=== PATIENT | male | born 1975 | race Caucasian/White ===

== ENCOUNTER 2016-06-28 23:51 | Emergency (ER) | payer OTHER ==
[2016-06-29] MEDS ORDERED: CEPHALEXIN 250 MG CAP As Ordered ONE (00:33)
--- NOTE | 2016-06-29 00:51 | EDDOCDS ---
Nurse's Notes [facility] Name: Gamal Altamirano Age: 41 yrs Sex: Male : 1975 Arrival Date: 06/28/2016 Time: 23:51 Bed I2 / M2 Private MD: NO PRIMARY PHYSICIAN, . Diagnosis: Cellulitis of head [any part, except face] Presentation: 06/28 23:56 Presenting complaint: Patient states: Patient a week ago got out of shower, noted jmb redness to scalp. Benadryl placed on area, went away but continues to be reddened. Last week "felt run down". Patient noted gland behind ear swollen which progressed to left side of face. Adult Sepsis Screening: The patient does not have new or worsening altered mentation. Patient's respiratory rate is less than 22. Systolic blood pressure is greater than 100. Patient has a qSOFA score of 0- Negative Sepsis Screen. Suicide/Homicide risk assessment- the patient denies having any suicidal and/or homicidal ideations and does not present with any other emotional, behavioral or mental health complaints. 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 Transition of care: patient was not received from another setting of care. 23:56 Acuity: JUAN Level 4 [facility] 23:56 Method Of Arrival: Walkin/Carried/Asstd [facility] Triage Assessment: 23:58 General: Appears in no apparent distress, comfortable, Behavior is appropriate for age, jmb cooperative. Pain: Location: face and scalp Pain currently is 5 out of 10 on a pain scale. HIV screening NA for this visit Offered previously. Neurological: Level of Consciousness is awake, alert, obeys commands, Oriented to person, place, time, Speech is normal, Facial symmetry appears normal, Facial symmetry: tongue is midline. Respiratory: Airway is patent Respiratory effort is even, unlabored, Respiratory pattern is regular, symmetrical. Derm: redness to scalp. Musculoskeletal: Range of motion intact in all extremities. Historical: - Allergies: lactose intolerant; - Home Meds: 1. ibuprofen 400 mg Oral tab 1 tab every 4 hours 2. all-theanen nightly - PMHx: Lactose Intolerance; - PSHx: Vasectomy; - Social history: Smoking status: Patient states was never smoker of tobacco. No barriers to communication noted, The patient speaks fluent Tajik, Speaks appropriately for age. - Family history: Not pertinent. - : The pt / caregiver states he / she is not on anticoagulants. Home medication list is obtained from the patient. - Exposure Risk Screening:: None identified. Screenin/15 00:19 Screening information is obtained from the patient. Fall risk: No risks identified. af2 Assistance ADL's: requires no assistance with activities of daily living. Abuse/DV Screen: The patient / caregiver reports he/she is: not in a situation that causes fear, pain or injury. Nutritional screening: No deficits noted. Advance Directives: Currently, there is no health care proxy. home support is adequate. Assessment: 00:20 General: Appears in no apparent distress, Behavior is cooperative. Neurological: Level af2 of Consciousness is awake, alert. EENT: pt reports "strawberry patch" noted to front left side of head. swelling to left side of face from jaw to hair line.. 00:42 General: Appears in no apparent distress, Behavior is cooperative. Neurological: Level af2 of Consciousness is awake, alert. Respiratory: Airway is patent Respiratory effort is even, unlabored. Derm: Skin is normal. Vital Signs: 06/28 23:52 BP 169 / 97; Pulse 100; Resp 18 S; Temp 96.6(O); Pulse Ox 99% on R/A; Weight 102.06 kg dd6 (R); Height 6 ft. 0 in. (182.88 cm) (R); 23:52 Body Mass Index 30.52 (102.06 kg, 182.88 cm) dd6 Vitals: 23:52 Log In Time: June 28, 2016 at 23:50. dd6 ED Course: 23:52 Patient visited by Star Wilkins PCA. dd6 23:52 NO PRIMARY PHYSICIAN, . is Private Physician. dd6 23:52 Patient moved to Waiting dd6 23:53 Patient moved to Pre RCE dd6 23:57 Triage Initiated jmb 23:59 Ricci Woodruff PA is PHCP. mo1 23:59 Nicolas Cerna DO is Attending Physician. mo1 23:59 Patient moved to I2 / M2 b 06/29 00:20 The patient / caregiver is instructed regarding the plan of care and ED course. Patient af2 has correct armband on for positive identification. 00:21 Patient visited by Jayla Singh RN. af2 00:30 Patient visited by Ricci Woodruff PA. mo1 00:42 No IV's were initiated during this patient's visit. No procedures done that require af2 assistance. 00:45 Patient visited by Jayla Singh RN. af2 Administered Medications: 00:34 Drug: Cephalexin 500 mg [cephalexin 250 mg capsule (2 caps)] Route: PO; jmb Order Results: There are currently no results for this order. Outcome: 00:37 Discharge ordered by Provider. mo1 00:43 Discharge Assessment: Patient awake, alert and oriented x 3. No cognitive and/or af2 functional deficits noted. Patient verbalized understanding of disposition instructions. patient administered narcotics - no. The following High Risk Discharge criteria are identified: None. Discharged to home ambulatory. Condition: good. Discharge instructions given to patient, Instructed on discharge instructions, follow up and referral plans. medication usage, Demonstrated understanding of instructions, medications, Pt was receptive of discharge instructions/ teaching. No special radiology studies were completed. Property :Personal belongings accompany Pt. 00:50 Patient left the ED. af2 Signatures: Star Wilkins, SENIOR COMMUNICATIONS SPECIALIST SENIOR COMMUNICATIONS SPECIALIST dd6 Ricci Woodruff PA PA mo1 Hernesto Jean RN RN jmb Fulton, Amber, RN RN af2 MTDD
--- NOTE | 2016-06-29 00:51 | EDDOCDS ---
Physician Documentation [facility] Name: Gamal Altamirano Age: 41 yrs Sex: Male : 1975 Arrival Date: 06/28/2016 Time: 23:51 Bed I2 / M2 Private MD: NO PRIMARY PHYSICIAN, . Disposition: 06/29/16 00:37 Discharged to Home/Self Care. Impression: Cellulitis of head [any part, except face]. - Condition is Stable. - Discharge Instructions: Cellulitis, Lymphadenopathy. - Prescriptions for Keflex 500 mg Oral Capsule - take 1 capsule by ORAL route every 8 hours for 10 days; 30 capsule. - Medication Reconciliation, Local Pharmacy Hours form. - Follow up: Private Physician; When: Call to arrange an appointment; Reason: Recheck today's complaints, Continuance of care. - Problem is new. - Symptoms are unchanged. Historical: - Allergies: lactose intolerant; - Home Meds: 1. ibuprofen 400 mg Oral tab 1 tab every 4 hours 2. all-theanen nightly - PMHx: Lactose Intolerance; - PSHx: Vasectomy; - Social history: Smoking status: Patient states was never smoker of tobacco. No barriers to communication noted, The patient speaks fluent Mozambican, Speaks appropriately for age. - Family history: Not pertinent. - : The pt / caregiver states he / she is not on anticoagulants. Home medication list is obtained from the patient. - Exposure Risk Screening:: None identified. Vital Signs: 06/28 23:52 BP 169 / 97; Pulse 100; Resp 18 S; Temp 96.6(O); Pulse Ox 99% on R/A; Weight 102.06 kg dd6 / 225 lbs (R); Height 6 ft. 0 in. (182.88 cm) (R); 23:52 Body Mass Index 30.52 (102.06 kg, 182.88 cm) dd6 MDM: 06/29 00:30 Cephalexin 500 mg PO once ordered. mo1 00:39 Financial registration complete. hs2 Administered Medications: 00:34 Drug: Cephalexin 500 mg [cephalexin 250 mg capsule (2 caps)] Route: PO; rodrigo Signatures: Ricci Woodruff PA PA mo1 Hernesto Jean RN RN ruib Jayla Singh RN RN af2 Petit, Yolanda, Reg Reg hs2 MTDD
--- NOTE | 2016-07-01 01:51 | EDDOCDS ---
Nurse's Notes [facility] Name: Gamal Altamirano Age: 41 yrs Sex: Male : 1975 Arrival Date: 06/28/2016 Time: 23:51 Bed I2 / M2 Private MD: NO PRIMARY PHYSICIAN, . Diagnosis: Cellulitis of head [any part, except face] Presentation: 06/28 23:56 Presenting complaint: Patient states: Patient a week ago got out of shower, noted jmb redness to scalp. Benadryl placed on area, went away but continues to be reddened. Last week "felt run down". Patient noted gland behind ear swollen which progressed to left side of face. Adult Sepsis Screening: The patient does not have new or worsening altered mentation. Patient's respiratory rate is less than 22. Systolic blood pressure is greater than 100. Patient has a qSOFA score of 0- Negative Sepsis Screen. Suicide/Homicide risk assessment- the patient denies having any suicidal and/or homicidal ideations and does not present with any other emotional, behavioral or mental health complaints. 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 Transition of care: patient was not received from another setting of care. 23:56 Acuity: JUAN Level 4 [facility] 23:56 Method Of Arrival: Walkin/Carried/Asstd [facility] Triage Assessment: 23:58 General: Appears in no apparent distress, comfortable, Behavior is appropriate for age, jmb cooperative. Pain: Location: face and scalp Pain currently is 5 out of 10 on a pain scale. HIV screening NA for this visit Offered previously. Neurological: Level of Consciousness is awake, alert, obeys commands, Oriented to person, place, time, Speech is normal, Facial symmetry appears normal, Facial symmetry: tongue is midline. Respiratory: Airway is patent Respiratory effort is even, unlabored, Respiratory pattern is regular, symmetrical. Derm: redness to scalp. Musculoskeletal: Range of motion intact in all extremities. Historical: - Allergies: lactose intolerant; - Home Meds: 1. ibuprofen 400 mg Oral tab 1 tab every 4 hours 2. all-theanen nightly - PMHx: Lactose Intolerance; - PSHx: Vasectomy; - Social history: Smoking status: Patient states was never smoker of tobacco. No barriers to communication noted, The patient speaks fluent Tajik, Speaks appropriately for age. - Family history: Not pertinent. - : The pt / caregiver states he / she is not on anticoagulants. Home medication list is obtained from the patient. - Exposure Risk Screening:: None identified. Screenin/15 00:19 Screening information is obtained from the patient. Fall risk: No risks identified. af2 Assistance ADL's: requires no assistance with activities of daily living. Abuse/DV Screen: The patient / caregiver reports he/she is: not in a situation that causes fear, pain or injury. Nutritional screening: No deficits noted. Advance Directives: Currently, there is no health care proxy. home support is adequate. Assessment: 00:20 General: Appears in no apparent distress, Behavior is cooperative. Neurological: Level af2 of Consciousness is awake, alert. EENT: pt reports "strawberry patch" noted to front left side of head. swelling to left side of face from jaw to hair line.. 00:42 General: Appears in no apparent distress, Behavior is cooperative. Neurological: Level af2 of Consciousness is awake, alert. Respiratory: Airway is patent Respiratory effort is even, unlabored. Derm: Skin is normal. Vital Signs: 06/28 23:52 BP 169 / 97; Pulse 100; Resp 18 S; Temp 96.6(O); Pulse Ox 99% on R/A; Weight 102.06 kg dd6 (R); Height 6 ft. 0 in. (182.88 cm) (R); 23:52 Body Mass Index 30.52 (102.06 kg, 182.88 cm) dd6 Vitals: 23:52 Log In Time: June 28, 2016 at 23:50. dd6 ED Course: 23:52 Patient visited by Star Wilkins PCA. dd6 23:52 NO PRIMARY PHYSICIAN, . is Private Physician. dd6 23:52 Patient moved to Waiting dd6 23:53 Patient moved to Pre RCE dd6 23:57 Triage Initiated jmb 23:59 Ricci Woodruff PA is PHCP. mo1 23:59 Nicolas Cerna DO is Attending Physician. mo1 23:59 Patient moved to I2 / M2 b 06/29 00:20 The patient / caregiver is instructed regarding the plan of care and ED course. Patient af2 has correct armband on for positive identification. 00:21 Patient visited by Jayla Singh RN. af2 00:30 Patient visited by Ricci Woodruff PA. mo1 00:42 No IV's were initiated during this patient's visit. No procedures done that require af2 assistance. 00:45 Patient visited by Jayla Singh RN. af2 03:30 [facility] Payment Agreement was scanned into [employer] and attached to record. hs2 07:56 T-Sheet-- Draft Copy was scanned into [employer] and attached to record. seh Administered Medications: 00:34 Drug: Cephalexin 500 mg [cephalexin 250 mg capsule (2 caps)] Route: PO; rodrigo Order Results: There are currently no results for this order. Outcome: 00:37 Discharge ordered by Provider. mo1 00:43 Discharge Assessment: Patient awake, alert and oriented x 3. No cognitive and/or af2 functional deficits noted. Patient verbalized understanding of disposition instructions. patient administered narcotics - no. The following High Risk Discharge criteria are identified: None. Discharged to home ambulatory. Condition: good. Discharge instructions given to patient, Instructed on discharge instructions, follow up and referral plans. medication usage, Demonstrated understanding of instructions, medications, Pt was receptive of discharge instructions/ teaching. No special radiology studies were completed. Property :Personal belongings accompany Pt. 00:50 Patient left the ED. af2 Signatures: Star Wilkins, INTERNATIONAL GUEST COORDINATOR INTERNATIONAL GUEST COORDINATOR dd6 Ricci Woodruff PA PA mo1 Hernesto Jean RN RN jmb Fulton, Amber, RN RN af2 Damaso Yolanda, Reg Reg hs2 Lourdes Marin [facility] Chart Complete MTDD
--- NOTE | 2016-07-01 01:51 | EDDOCDS ---
Physician Documentation [facility] Name: Gamal Altamirano Age: 41 yrs Sex: Male : 1975 Arrival Date: 06/28/2016 Time: 23:51 Bed I2 / M2 Private MD: NO PRIMARY PHYSICIAN, . Disposition: 06/29/16 00:37 Discharged to Home/Self Care. Impression: Cellulitis of head [any part, except face]. - Condition is Stable. - Discharge Instructions: Cellulitis, Lymphadenopathy. - Prescriptions for Keflex 500 mg Oral Capsule - take 1 capsule by ORAL route every 8 hours for 10 days; 30 capsule. - Medication Reconciliation, Local Pharmacy Hours form. - Follow up: Private Physician; When: Call to arrange an appointment; Reason: Recheck today's complaints, Continuance of care. - Problem is new. - Symptoms are unchanged. Historical: - Allergies: lactose intolerant; - Home Meds: 1. ibuprofen 400 mg Oral tab 1 tab every 4 hours 2. all-theanen nightly - PMHx: Lactose Intolerance; - PSHx: Vasectomy; - Social history: Smoking status: Patient states was never smoker of tobacco. No barriers to communication noted, The patient speaks fluent Kazakh, Speaks appropriately for age. - Family history: Not pertinent. - : The pt / caregiver states he / she is not on anticoagulants. Home medication list is obtained from the patient. - Exposure Risk Screening:: None identified. Vital Signs: 06/28 23:52 BP 169 / 97; Pulse 100; Resp 18 S; Temp 96.6(O); Pulse Ox 99% on R/A; Weight 102.06 kg dd6 / 225 lbs (R); Height 6 ft. 0 in. (182.88 cm) (R); 23:52 Body Mass Index 30.52 (102.06 kg, 182.88 cm) dd6 MDM: 06/29 00:30 Cephalexin 500 mg PO once ordered. mo1 00:39 Financial registration complete. hs2 03:30 [facility] Payment Agreement was scanned into [employer] and attached to record. hs2 07:56 T-Sheet-- Draft Copy was scanned into [employer] and attached to record. seh Administered Medications: 00:34 Drug: Cephalexin 500 mg [cephalexin 250 mg capsule (2 caps)] Route: PO; rodrigo Signatures: Ricci Woodruff PA PA mo1 Hernesto Jean RN RN ruib Jayla Singh RN RN af2 Yolanda Petit, Reg Reg hs2 Lourdes Marin The chart was reviewed and I authenticate all verbal orders and agree with the evaluation and treatment provided.Attachments: 03:30 [facility] Payment Agreement hs2 07:56 T-Sheet-- Draft Copy [facility] Chart Complete MTDD
--- NOTE | 2016-07-01 01:51 | EDDOCDS ---
Physician Documentation [facility] Name: Gamal Altamirano Age: 41 yrs Sex: Male : 1975 Arrival Date: 06/28/2016 Time: 23:51 Bed I2 / M2 Private MD: NO PRIMARY PHYSICIAN, . Disposition: 06/29/16 00:37 Discharged to Home/Self Care. Impression: Cellulitis of head [any part, except face]. - Condition is Stable. - Discharge Instructions: Cellulitis, Lymphadenopathy. - Prescriptions for Keflex 500 mg Oral Capsule - take 1 capsule by ORAL route every 8 hours for 10 days; 30 capsule. - Medication Reconciliation, Local Pharmacy Hours form. - Follow up: Private Physician; When: Call to arrange an appointment; Reason: Recheck today's complaints, Continuance of care. - Problem is new. - Symptoms are unchanged. Historical: - Allergies: lactose intolerant; - Home Meds: 1. ibuprofen 400 mg Oral tab 1 tab every 4 hours 2. all-theanen nightly - PMHx: Lactose Intolerance; - PSHx: Vasectomy; - Social history: Smoking status: Patient states was never smoker of tobacco. No barriers to communication noted, The patient speaks fluent Serbian, Speaks appropriately for age. - Family history: Not pertinent. - : The pt / caregiver states he / she is not on anticoagulants. Home medication list is obtained from the patient. - Exposure Risk Screening:: None identified. Vital Signs: 06/28 23:52 BP 169 / 97; Pulse 100; Resp 18 S; Temp 96.6(O); Pulse Ox 99% on R/A; Weight 102.06 kg dd6 / 225 lbs (R); Height 6 ft. 0 in. (182.88 cm) (R); 23:52 Body Mass Index 30.52 (102.06 kg, 182.88 cm) dd6 MDM: 06/29 00:30 Cephalexin 500 mg PO once ordered. mo1 00:39 Financial registration complete. hs2 03:30 [facility] Payment Agreement was scanned into [employer] and attached to record. hs2 07:56 T-Sheet-- Draft Copy was scanned into [employer] and attached to record. seh Administered Medications: 00:34 Drug: Cephalexin 500 mg [cephalexin 250 mg capsule (2 caps)] Route: PO; rodrigo Signatures: Ricci Woodruff PA PA mo1 Hernesto Jean RN RN ruib Jayla Singh RN RN af2 Yolanda Petit, Reg Reg hs2 Lourdes Marin The chart was reviewed and I authenticate all verbal orders and agree with the evaluation and treatment provided.Attachments: 03:30 [facility] Payment Agreement hs2 07:56 T-Sheet-- Draft Copy [facility] Chart Complete MTDD
== END 2016-06-29 00:50 | disposition home or self-care (01) ==
LOC: M ED 23:51
DX: L03.811 Cellulitis of head [any part, except face] (principal); R59.9 Enlarged lymph nodes, unspecified; Z79.899 Other long term (current) drug therapy; Z91.011 Allergy to milk products

== ENCOUNTER → 2017-01-14 | Outpatient (CLI) | payer OTHER ==
[2017-01-14 09:42] LABS: BASO % 0.7 % (0.0-1.0); EOS # 0.1 K/mm3 (0.0-0.50); EOS % 1.9 % (0.0-3.0); LARGE UNSTAINED CELL # 0.2 K/mm3 (0.0-0.4); LARGE UNSTAINED CELL % 2.8 % (0.0-4.0); LYMPH # 2.1 K/mm3 (1.5-4.5); LYMPH % 34.3 % (24.0-44.0); MEAN CORPUSCULAR HEMOGLOBIN 29.5 pg (27.0-33.0); MEAN CORPUSCULAR HGB CONC 35.1 g/dl (32.0-36.5); MEAN CORPUSCULAR VOLUME 84.2 fl (80.0-96.0); MONO # 0.4 K/mm3 (0.0-0.8); MONO % 7.4 % (0.0-5.0); NEUTROPHILS # 2.9 K/mm3 (1.8-7.7); NEUTROPHILS % 52.8 % (36.0-66.0); PLATELET COUNT, AUTOMATED 246 k/mm3 (150-450); RED CELL DISTRIBUTION WIDTH 12.3 % (11.5-14.5); WHITE BLOOD COUNT 5.6 K/mm3 (4.0-10.0)
[2017-01-14 10:10] LABS: ALBUMIN 4.1 GM/DL (3.2-5.2); ALBUMIN/GLOBULIN RATIO 1.32 (1.00-1.93); ALKALINE PHOSPHATASE 50 U/L (45-117); ALT/SGPT 49 U/L (12-78); ANION GAP 7 MEQ/L (8-16); AST/SGOT 43 U/L (15-37); BILIRUBIN,TOTAL 0.9 MG/DL (0.2-1.0); BLOOD UREA NITROGEN 14 MG/DL (7-18); CALCIUM LEVEL 9.4 MG/DL (8.5-10.1); CARBON DIOXIDE LEVEL 29 MEQ/L (21-32); CHLORIDE LEVEL 104 MEQ/L (98-107); CHOLESTEROL LEVEL 233 MG/DL (<200); CREATININE FOR GFR 1.01 MG/DL (0.70-1.30); GLOMERULAR FILTRATION RATE > 60.0 (>60); GLUCOSE, FASTING 90 MG/DL (70-105); POTASSIUM SERUM 4.2 MEQ/L (3.5-5.1); SODIUM LEVEL 140 MEQ/L (136-145); TOTAL PROTEIN 7.2 GM/DL (6.4-8.2); TRIGLYCERIDES LEVEL 182 MG/DL (<150)
== END ==
LOC: M WUC 08:27
PROVIDERS: ATTEND Family Medicine
DX: Z13.29 Encounter for screening for other suspected endocrine disorder (principal); Z13.220 Encounter for screening for lipoid disorders; Z13.0 Encounter for screening for diseases of the blood and blood-forming organs and certain disorders involving the immune mechanism

== ENCOUNTER → 2017-12-25 | Outpatient (CLI) | payer OTHER ==
[2017-12-25 09:28] LABS: BASO % 0.9 % (0.0-1.0); EOS # 0.1 10^3/uL (0.0-0.50); EOS % 1.5 % (0.0-3.0); HEMATOCRIT 44.6 % (42.0-52.0); HEMOGLOBIN 15.3 g/dl (13.5-17.5); IMMATURE GRANULOCYTE % 0.4 % (0-3.0); LYMPH # 1.2 10^3/uL (1.5-4.5); LYMPH % 25.3 % (24.0-44.0); MEAN CORPUSCULAR HEMOGLOBIN 28.9 pg (27.0-33.0); MEAN CORPUSCULAR HGB CONC 34.3 g/dl (32.0-36.5); MEAN CORPUSCULAR VOLUME 84.2 fl (80.0-96.0); MONO # 0.4 10^3/uL (0.0-0.8); MONO % 8.7 % (0.0-5.0); NEUTROPHILS # 2.9 10^3/uL (1.8-7.7); NEUTROPHILS % 63.2 % (36.0-66.0); PLATELET COUNT, AUTOMATED 260 10^3/uL (150-450); RED CELL DISTRIBUTION WIDTH 11.9 % (11.5-14.5); WHITE BLOOD COUNT 4.6 10^3/uL (4.0-10.0)
[2017-12-25 10:17] LABS: ALBUMIN 4.1 GM/DL (3.2-5.2); ALBUMIN/GLOBULIN RATIO 1.46 (1.00-1.93); ALKALINE PHOSPHATASE 53 U/L (45-117); ALT/SGPT 36 U/L (12-78); ANION GAP 7 MEQ/L (8-16); AST/SGOT 15 U/L (7-37); BILIRUBIN,TOTAL 0.7 MG/DL (0.2-1.0); BLOOD UREA NITROGEN 14 MG/DL (7-18); CARBON DIOXIDE LEVEL 30 MEQ/L (21-32); CHLORIDE LEVEL 105 MEQ/L (98-107); CHOLESTEROL LEVEL 208 MG/DL (<200); CHOLESTEROL RISK RATIO 4.425 (<5); CREATININE FOR GFR 0.95 MG/DL (0.70-1.30); FREE T4 0.93 NG/DL (0.76-1.46); GLOMERULAR FILTRATION RATE > 60.0 (>60); GLUCOSE, FASTING 94 MG/DL (70-100); HDL CHOLESTEROL 47 MG/DL (>40); LDL CHOLESTEROL 126.6 MG/DL (<100); NON-HDL-C 161 MG/DL; POTASSIUM SERUM 4.1 MEQ/L (3.5-5.1); SODIUM LEVEL 142 MEQ/L (136-145); TOTAL PROTEIN 6.9 GM/DL (6.4-8.2); TRIGLYCERIDES LEVEL 172 MG/DL (<150)
== END ==
LOC: M WUC 08:11
DX: Z13.29 Encounter for screening for other suspected endocrine disorder (principal); Z13.220 Encounter for screening for lipoid disorders
CPT/HCPCS: 84443

== ENCOUNTER → 2021-02-06 | Outpatient (CLI) | payer OTHER ==
[2021-02-06 10:36] LABS: BASO % 0.8 % (0.0-1.0); EOS # 0.1 10^3/uL (0.0-0.5); EOS % 1.4 % (0.0-3.0); HEMATOCRIT 43.1 % (42.0-52.0); HEMOGLOBIN 14.7 g/dl (13.5-17.5); LYMPH # 2.1 10^3/uL (1.5-5.0); LYMPH % 43.8 % (24.0-44.0); MEAN CORPUSCULAR HEMOGLOBIN 29.2 pg (27.0-33.0); MEAN CORPUSCULAR HGB CONC 34.1 g/dl (32.0-36.5); MEAN CORPUSCULAR VOLUME 85.5 fl (80.0-96.0); MONO # 0.5 10^3/uL (0.0-0.8); NEUTROPHILS # 2.1 10^3/uL (1.5-8.5); NEUTROPHILS % 43.8 % (36.0-66.0); PLATELET COUNT, AUTOMATED 244 10^3/uL (150-450); RED BLOOD COUNT 5.04 10^6/uL (4.30-6.10); WHITE BLOOD COUNT 4.9 10^3/uL (4.0-10.0)
[2021-02-06 11:27] LABS: ALBUMIN 3.8 GM/DL (3.2-5.2); ALT/SGPT 43 U/L (12-78); BILIRUBIN,TOTAL 0.5 MG/DL (0.2-1.0); BLOOD UREA NITROGEN 12 MG/DL (7-18); CALCIUM LEVEL 9.2 MG/DL (8.5-10.1); CARBON DIOXIDE LEVEL 29 MEQ/L (21-32); CHLORIDE LEVEL 108 MEQ/L (98-107); CHOLESTEROL LEVEL 240 MG/DL (<200); CHOLESTEROL RISK RATIO 5.217 (<5); FREE T4 0.81 NG/DL (0.76-1.46); GLOMERULAR FILTRATION RATE > 60.0 (>60); GLUCOSE, FASTING 90 MG/DL (70-100); HDL CHOLESTEROL 46 MG/DL (>40); LDL CHOLESTEROL 137 MG/DL (<100); NON-HDL-C 194 MG/DL; POTASSIUM SERUM 4.4 MEQ/L (3.5-5.1); SODIUM LEVEL 140 MEQ/L (136-145); TOTAL 25(OH) VITAMIN D 21.1 NG/ML (30.0-100.0); TOTAL PROTEIN 6.8 GM/DL (6.4-8.2); TRIGLYCERIDES LEVEL 285 MG/DL (<150)
[2021-02-06 11:53] LABS: HEMOGLOBIN A1c 5.6 %
[2021-02-07 23:07] LABS: PSA TOTAL 0.9 ng/mL (0.0-4.0)
== END ==
LOC: M WUC 08:20
PROVIDERS: ATTEND Physician Assistant
DX: E78.5 Hyperlipidemia, unspecified (principal); Z13.29 Encounter for screening for other suspected endocrine disorder; Z12.5 Encounter for screening for malignant neoplasm of prostate

== ENCOUNTER → 2021-08-12 | Outpatient (CLI) | payer OTHER ==
[2021-08-12 11:15] LABS: ALBUMIN 3.9 GM/DL (3.2-5.2); ALT/SGPT 43 U/L (12-78); BILIRUBIN,TOTAL 0.6 MG/DL (0.2-1.0); BLOOD UREA NITROGEN 11 MG/DL (7-18); CALCIUM LEVEL 9.1 MG/DL (8.5-10.1); CARBON DIOXIDE LEVEL 27 MEQ/L (21-32); CHLORIDE LEVEL 106 MEQ/L (98-107); CHOLESTEROL LEVEL 226 MG/DL (<200); CHOLESTEROL RISK RATIO 4.808 (<5); CREATININE FOR GFR 0.86 MG/DL (0.70-1.30); GLOMERULAR FILTRATION RATE > 60.0 (>60); GLUCOSE, FASTING 92 MG/DL (70-100); HDL CHOLESTEROL 47 MG/DL (>40); LDL CHOLESTEROL 137 MG/DL (<100); NON-HDL-C 179 MG/DL; POTASSIUM SERUM 4.4 MEQ/L (3.5-5.1); SODIUM LEVEL 139 MEQ/L (136-145); TOTAL 25(OH) VITAMIN D 25.6 NG/ML (30.0-100.0); TOTAL PROTEIN 6.7 GM/DL (6.4-8.2); TRIGLYCERIDES LEVEL 210 MG/DL (<150)
== END ==
LOC: M WUC 08:34
PROVIDERS: ATTEND Physician Assistant
DX: E78.00 Pure hypercholesterolemia, unspecified (principal); E55.9 Vitamin D deficiency, unspecified

== ENCOUNTER → 2022-01-14 | Outpatient (CLI) | payer OTHER ==
[2022-01-14 21:24] LABS: ALBUMIN 4.1 GM/DL (3.2-5.2); ALT/SGPT 50 U/L (12-78); BILIRUBIN,TOTAL 0.3 MG/DL (0.2-1.0); BLOOD UREA NITROGEN 10 MG/DL (7-18); CALCIUM LEVEL 9.1 MG/DL (8.5-10.1); CARBON DIOXIDE LEVEL 30 MEQ/L (21-32); CHLORIDE LEVEL 106 MEQ/L (98-107); CHOLESTEROL LEVEL 235 MG/DL (<200); CHOLESTEROL RISK RATIO 5.595 (<5); CREATININE FOR GFR 0.86 MG/DL (0.70-1.30); GLOMERULAR FILTRATION RATE > 60.0 (>60); GLUCOSE, FASTING 97 MG/DL (70-100); HDL CHOLESTEROL 42 MG/DL (>40); NON-HDL-C 193 MG/DL; SODIUM LEVEL 140 MEQ/L (136-145); TOTAL PROTEIN 7.2 GM/DL (6.4-8.2); TRIGLYCERIDES LEVEL 401 MG/DL (<150)
[2022-01-14 21:26] LABS: BASO # 0.1 10^3/uL (0.0-0.2); EOS # 0.1 10^3/uL (0.0-0.5); EOS % 1.8 % (0.0-3.0); HEMATOCRIT 46.6 % (42.0-52.0); HEMOGLOBIN 15.5 g/dl (13.5-17.5); LYMPH # 2.5 10^3/uL (1.5-5.0); LYMPH % 41.2 % (24.0-44.0); MEAN CORPUSCULAR HEMOGLOBIN 28.7 pg (27.0-33.0); MEAN CORPUSCULAR HGB CONC 33.3 g/dl (32.0-36.5); MEAN CORPUSCULAR VOLUME 86.1 fl (80.0-96.0); MONO # 0.6 10^3/uL (0.0-0.8); MONO % 9.7 % (2.0-8.0); NEUTROPHILS # 2.8 10^3/uL (1.5-8.5); NEUTROPHILS % 46.1 % (36.0-66.0); PLATELET COUNT, AUTOMATED 299 10^3/uL (150-450); RED BLOOD COUNT 5.41 10^6/uL (4.30-6.10)
[2022-01-14 21:57] LABS: TOTAL 25(OH) VITAMIN D 31.5 NG/ML (30.0-100.0)
== END ==
LOC: M WUC 15:15
PROVIDERS: ATTEND Physician Assistant
DX: E78.5 Hyperlipidemia, unspecified (principal)
CPT/HCPCS: 36415; 80053; 80061; 82306; 85025; G0103

== ENCOUNTER → 2022-06-30 | Outpatient (CLI) | payer OTHER ==
[2022-06-30 12:56] LABS: BASO # 0.1 10^3/uL (0.0-0.2); BASO % 1.1 % (0.0-1.0); EOS # 0.1 10^3/uL (0.0-0.5); EOS % 2.4 % (0.0-3.0); HEMATOCRIT 46.2 % (42.0-52.0); HEMOGLOBIN 15.1 g/dl (13.5-17.5); LYMPH % 42.9 % (24.0-44.0); MEAN CORPUSCULAR HEMOGLOBIN 28.5 pg (27.0-33.0); MEAN CORPUSCULAR HGB CONC 32.7 g/dl (32.0-36.5); MEAN CORPUSCULAR VOLUME 87.3 fl (80.0-96.0); MONO # 0.5 10^3/uL (0.0-0.8); MONO % 11.2 % (2.0-8.0); NEUTROPHILS # 1.9 10^3/uL (1.5-8.5); NEUTROPHILS % 42.2 % (36.0-66.0); PLATELET COUNT, AUTOMATED 261 10^3/uL (150-450); RED BLOOD COUNT 5.29 10^6/uL (4.30-6.10); WHITE BLOOD COUNT 4.6 10^3/uL (4.0-10.0)
[2022-06-30 13:22] LABS: ALBUMIN 4.2 G/DL (3.2-5.2); ALKALINE PHOSPHATASE 49 U/L (46-116); ALT/SGPT 59 U/L (7.0-40); AST/SGOT 35 U/L (<34); BILIRUBIN,TOTAL 0.6 MG/DL (0.3-1.2); BLOOD UREA NITROGEN 13 MG/DL (9-23); CALCIUM LEVEL 9.1 MG/DL (8.5-10.1); CARBON DIOXIDE LEVEL 30 MMOL/L (20-31); CHLORIDE LEVEL 104 MMOL/L (98-107); CHOLESTEROL LEVEL 160 MG/DL (<200); CHOLESTEROL RISK RATIO 3.05 (<5); CREATININE FOR GFR 0.85 MG/DL (0.70-1.30); GLOMERULAR FILTRATION RATE > 60.0 (>60); GLUCOSE, FASTING 97 MG/DL (60-100); HDL CHOLESTEROL 52.4 MG/DL (>40); LDL CHOLESTEROL 80.2 MG/DL (<100); NON-HDL-C 108 MG/DL; POTASSIUM SERUM 4.6 MMOL/L (3.5-5.1); SODIUM LEVEL 138 MMOL/L (136-145); TOTAL PROTEIN 6.9 G/DL (5.7-8.2); TRIGLYCERIDES LEVEL 137 MG/DL (<150)
== END ==
LOC: M WUC 08:49
PROVIDERS: ATTEND Physician Assistant
DX: E78.5 Hyperlipidemia, unspecified (principal)

== ENCOUNTER → 2024-02-04 | Outpatient (REF) | payer OTHER ==
[~2024-02-04] MED LIST: FLON1SPR; LORA-243 PO; LORA5SOL14 PO; MULT-6 PO; ROSU5TAB40 PO; THEA200C PO; TUME1CAP PO; VITA1CHW3 PO
== END ==
LOC: M LAB REF 16:14
PROVIDERS: ATTEND Physician Assistant
DX: B34.9 Viral infection, unspecified (principal)

== ENCOUNTER → 2025-05-04 | Outpatient (CLI) | payer OTHER ==
[~2025-05-04] MED LIST changes: -ROSU5TAB40 PO; +ROSU5TAB49 PO
[2025-05-04 10:25] LABS: BASO # 0.0 10^3/uL (0.0-0.2); BASO % 0.7 % (0.0-1.0); EOS # 0.1 10^3/uL (0.0-0.5); EOS % 2.1 % (0.0-3.0); LYMPH # 2.0 10^3/uL (1.5-5.0); LYMPH % 36.7 % (24.0-44.0); MONO # 0.6 10^3/uL (0.0-0.8); MONO % 10.7 % (2.0-8.0); NEUTROPHILS # 2.7 10^3/uL (1.5-8.5); NEUTROPHILS % 49.6 % (36.0-66.0); PLATELET COUNT, AUTOMATED 269 10^3/uL (150-450)
[2025-05-04 10:30] LABS: PSA SCREENING 1.85 NG/ML (< 4.00)
[2025-05-04 10:32] LABS: ALT/SGPT 60 U/L (7.0-40); AST/SGOT 34 U/L (<34); CALCIUM LEVEL 9.2 MG/DL (8.5-10.1); CARBON DIOXIDE LEVEL 31 MMOL/L (20-31); CHLORIDE LEVEL 104 MMOL/L (98-107); CHOLESTEROL LEVEL 184 MG/DL (<200); CHOLESTEROL RISK RATIO 3.80 (<5); CREATININE FOR GFR 0.86 MG/DL (0.70-1.30); GLOMERULAR FILTRATION RATE > 90.0 (>56); LDL CHOLESTEROL 96.9 MG/DL (<100); NON-HDL-C 135.7 MG/DL; POTASSIUM SERUM 4.9 MMOL/L (3.5-5.1); SODIUM LEVEL 141 MMOL/L (136-145); TRIGLYCERIDES LEVEL 194 MG/DL (<150)
[2025-05-04 10:33] LABS: FREE T4 1.01 NG/DL (0.89-1.76)
[2025-05-04 10:35] LABS: TOTAL 25(OH) VITAMIN D 31.8 NG/ML (20.0-100.0)
[2025-05-04 10:49] LABS: ESTIMATED AVERAGE GLUCOSE 108.0 MG/DL (60-110)
== END ==
LOC: M PLALAB 08:17
PROVIDERS: ATTEND Physician Assistant
DX: Z13.29 Encounter for screening for other suspected endocrine disorder (principal); R35.1 Nocturia; E55.9 Vitamin D deficiency, unspecified; E78.5 Hyperlipidemia, unspecified